=== PATIENT | female | born 1995 | race Two or more races ===

== ENCOUNTER 2019-06-29 15:35 | Emergency (ER) | payer MEDICAID, OTHER ==
[~2019-06-29] VITALS: Ht 154.9 cm; Wt 63.5 kg
[2019-06-29 16:14] VITALS: BP 130/80
== END 2019-06-29 17:00 | disposition home or self-care (01) ==
LOC: ER 15:35
DX: S29.012A Strain of muscle and tendon of back wall of thorax, initial encounter (principal); V43.52XA Car driver injured in collision with other type car in traffic accident, initial encounter; Y93.I9 Activity, other involving external motion; Y92.488 Other paved roadways as the place of occurrence of the external cause; Y99.8 Other external cause status